=== PATIENT | male | born 1975 | race American Indian/Alaskan Native ===

== ENCOUNTER 2018-10-04 16:46 | Inpatient (IN) | payer OTHER ==
[2018-10-04] MEDS ORDERED: NACL 0.9% 1000 ML 1,000 ML IV ONE ×2 (17:00→21:11)
[2018-10-04 17:26] LABS: Basophils # (Auto) 0.1 K/mm3 (0.0-0.1); Basophils % (Auto) 0.5 % (0.0-1.8); Eosinophils # (Auto) 0.2 K/mm3 (0.0-0.4); Eosinophils % (Auto) 1.1 % (0.0-4.3); Hematocrit 37.9 % (35.5-45.6); Hemoglobin 12.5 gm/dl (11.8-15.2); Lymphocytes # (Auto) 3.2 K/mm3 (1.2-5.4); Lymphocytes % (Auto) 18.4 % (13.4-35.0); Mean Corpuscular HGB Conc 33 % (32-34); Mean Corpuscular Volume 98 fl (84-94); Monocytes % (Auto) 11.3 % (0.0-7.3); Platelet Count 302 K/mm3 (140-440); Red Blood Count 3.86 M/mm3 (3.65-5.03); Red Cell Distribution Width 15.9 % (13.2-15.2)
[2018-10-04 17:42] LABS: Alanine Aminotransferase 52 units/L (7-56); Albumin 3.7 g/dL (3.9-5); BUN/Creatinine Ratio 13; Blood Urea Nitrogen 15 mg/dL (9-20); Calcium 9.4 mg/dL (8.4-10.2); Hemolysis Index 13
[2018-10-04] MEDS ORDERED: ZOFRAN ONE (18:41)
[2018-10-04] MEDS ORDERED: MORPHINE ONE (18:41)
[2018-10-04] MEDS ORDERED: MORPHINE IV ONE ×2 (18:42→19:41)
[2018-10-04] MEDS ORDERED: ZOFRAN IV ONE (18:42)
[2018-10-04 18:45] LABS: Bilirubin,Urine NEG (Negative); Blood,Urine LG (Negative); Color,Urine Yellow (Yellow); Mucus,Urine FEW /HPF; Protein,Urine <15 mg/dL mg/dL (Negative); Urobilinogen,Urine < 2.0 mg/dL (<2.0)
--- NOTE | 2018-10-04 19:14 | Cat Scan Report ---
FINAL REPORT EXAM: CT ABDOMEN PELVIS WO CON HISTORY: abdominal pain, WBC elevated TECHNIQUE: Axial helical imaging through the abdomen and pelvis with sagittal and coronal reformatte d images obtained. Comparison: None FINDINGS: The lung bases are notable for evidence of pulmonary emphysema. The heart appears to be normal size. The liver, spleen, pancreas, kidneys and adrenal glands are unremarkable in appearance. The gallbladder is moderately distended and unremarkable. There is moderate inflammatory/phlegmonous change in the right anterior pelvis in the region the dist al appendix. The proximal appendix is normal caliber and contains air. The mid appendix appears to co ntain appendicoliths. The distal appendix is not clearly visualized but is in the region of the infla mmatory change in the right anterior pelvis. This may represent tip appendicitis. Evaluation is limit ed by the lack of GI and IV contrast. There is no evidence of pneumoperitoneum or free fluid. There is a moderate amount of stool throughout the colon. The abdominal aorta is normal caliber. The urinary bladder is mildly distended. There appears to be a mildly crease thickness of the urinary bladder wall. The prostate gland and seminal vesicles are unremarkable in appearance. The bony structures are unremarkable. IMPRESSION: 1. Moderate inflammatory/phlegmonous change in the region of the distal appendix. The distal appendix is not clearly visualized due to the inflammatory process and lack of GI and IV contrast. This may r epresent changes of tip appendicitis. If further imaging is required, CT with IV contrast and opacification of the distal small bowel and p roximal colon may be helpful. 2. Moderate amount of stool throughout the colon. 3. There appears to be mild increased thickness of the urinary bladder wall.
--- NOTE | 2018-10-04 20:05 | Emergency Department Report ---
ED General Adult HPI - General Chief complaint: Abdominal Pain Stated complaint: ABD PAIN Time Seen by Provider: 10/04/18 19:39 Source: patient Mode of arrival: Ambulatory Limitations: No Limitations - History of Present Illness Initial comments: She complains of right lower quadrant abdominal pain that started this morning. Patient states the pain is sharp in nature and does not radiate. Patient denies chest pain, shortness breath, or headache. -: Sudden Location: abdomen Radiation: non-radiation Severity scale (0 -10): 10 Quality: sharp Consistency: constant Improves with: none Worsens with: movement Associated Symptoms: denies other symptoms Treatments Prior to Arrival: none - Related Data Home Medications Medication Instructions Recorded Confirmed Last Taken Elviteg/Cob/Emtri/Tenof Alafen 1 each PO DAILY 10/04/18 10/04/18 Unknown [Genvoya Tablet] Allergies Allergy/AdvReac Type Severity Reaction Status Date / Time Iodine and Iodide Containing Allergy Anaphylaxis Verified 10/04/18 18:07 Produc shellfish derived Allergy Anaphylaxis Verified 10/04/18 18:07 ED Review of Systems ROS: Stated complaint: ABD PAIN Other details as noted in HPI Comment: All other systems reviewed and negative Constitutional: denies: chills, fever Eyes: denies: eye pain, eye discharge, vision change ENT: denies: ear pain, throat pain Respiratory: denies: cough, shortness of breath, wheezing Cardiovascular: denies: chest pain, palpitations Endocrine: no symptoms reported Gastrointestinal: abdominal pain. denies: nausea, diarrhea Genitourinary: denies: urgency, dysuria Musculoskeletal: denies: back pain, joint swelling, arthralgia Skin: denies: rash, lesions Neurological: denies: headache, weakness, paresthesias Psychiatric: denies: anxiety, depression Hematological/Lymphatic: denies: easy bleeding, easy bruising ED Past Medical Hx - Past Medical History Previous Medical History?: Yes Hx HIV: Yes - Surgical History Past Surgical History?: No - Social History Smoking Status: Current Every Day Smoker Substance Use Type: Marijuana - Medications Home Medications: Home Medications Medication Instructions Recorded Confirmed Last Taken Type Elviteg/Cob/Emtri/Tenof Alafen 1 each PO DAILY 10/04/18 10/04/18 Unknown History [Genvoya Tablet] ED Physical Exam - General Limitations: No Limitations General appearance: alert, in no apparent distress - Head Head exam: Present: atraumatic, normocephalic - Eye Eye exam: Present: normal appearance, PERRL, EOMI - ENT ENT exam: Present: mucous membranes moist - Neck Neck exam: Present: normal inspection - Respiratory Respiratory exam: Present: normal lung sounds bilaterally. Absent: respiratory distress, wheezes, rales - Cardiovascular Cardiovascular Exam: Present: regular rate, normal rhythm. Absent: systolic murmur, diastolic murmur, rubs, gallop - GI/Abdominal GI/Abdominal exam: Present: soft, tenderness (ttp rlq), normal bowel sounds. Absent: distended - Rectal Rectal exam: Present: deferred - Extremities Exam Extremities exam: Present: normal inspection - Back Exam Back exam: Present: normal inspection - Neurological Exam Neurological exam: Present: alert, oriented X3, CN II-XII intact. Absent: motor sensory deficit - Psychiatric Psychiatric exam: Present: normal affect, normal mood - Skin Skin exam: Present: warm, dry, intact, normal color. Absent: rash ED Course Vital Signs 10/04/18 16:58 Temperature 98.9 F Pulse Rate 107 H Respiratory 18 Rate Blood Pressure 130/74 O2 Sat by Pulse 99 Oximetry ED Medical Decision Making - Lab Data Result diagrams: 10/04/18 17:02 10/04/18 17:02 Lab Results 10/04/18 10/04/18 10/04/18 Range/Units 17:02 17:02 18:04 WBC 17.6 H (4.5-11.0) K/mm3 RBC 3.86 (3.65-5.03) M/mm3 Hgb 12.5 (11.8-15.2) gm/dl Hct 37.9 (35.5-45.6) % MCV 98 H (84-94) fl MCH 32 (28-32) pg MCHC 33 (32-34) % RDW 15.9 H (13.2-15.2) % Plt Count 302 (140-440) K/mm3 Lymph % (Auto) 18.4 (13.4-35.0) % [place] % (Auto) 11.3 H (0.0-7.3) % Eos % (Auto) 1.1 (0.0-4.3) % Baso % (Auto) 0.5 (0.0-1.8) % Lymph # 3.2 (1.2-5.4) K/mm3 [place] # 2.0 H (0.0-0.8) K/mm3 Eos # 0.2 (0.0-0.4) K/mm3 Baso # 0.1 (0.0-0.1) K/mm3 Seg Neutrophils % 68.7 (40.0-70.0) % Seg Neutrophils # 12.1 H (1.8-7.7) K/mm3 Sodium 133 L (137-145) mmol/L Potassium 4.2 (3.6-5.0) mmol/L Chloride 100.8 (98-107) mmol/L Carbon Dioxide 24 (22-30) mmol/L Anion Gap 12 mmol/L BUN 15 (9-20) mg/dL Creatinine 1.2 (0.8-1.5) mg/dL Estimated GFR > 60 ml/min BUN/Creatinine Ratio 13 % Glucose 97 (75-100) mg/dL Calcium 9.4 (8.4-10.2) mg/dL Total Bilirubin 0.50 (0.1-1.2) mg/dL AST 39 (5-40) units/L ALT 52 (7-56) units/L Alkaline Phosphatase 94 (35-129) units/L Total Protein 9.8 H (6.3-8.2) g/dL Albumin 3.7 L (3.9-5) g/dL Albumin/Globulin Ratio 0.6 % Urine Color Yellow (Yellow) Urine Turbidity Clear (Clear) Urine pH 5.0 (5.0-7.0) Ur Specific [place] 1.018 (1.003-1.030) Urine Protein <15 mg/dl (Negative) mg/dL Urine Glucose (UA) Neg (Negative) mg/dL Urine Ketones Neg (Negative) mg/dL Urine Blood Lg (Negative) Urine Nitrite Neg (Negative) Urine Bilirubin Neg (Negative) Urine Urobilinogen < 2.0 (<2.0) mg/dL Ur Leukocyte Esterase Neg (Negative) Urine WBC (Auto) 5.0 (0.0-6.0) /HPF Urine RBC (Auto) 127.0 (0.0-6.0) /HPF U Epithel Cells (Auto) < 1.0 (0-13.0) /HPF Urine Mucus Few /HPF - Radiology Data Radiology results: report reviewed [facility] [address] [place] [address] Cat Scan Report Signed Patient: MEJIA JUAREZ MR#: [id number] : 1975 Acct:[id number] Age/Sex: 42 / M ADM Date: 10/04/18 Loc: ED Attending Dr: Ordering Physician: CHAPARRITA BLANCO MD Date of Service: 10/04/18 Procedure(s): CT abdomen pelvis wo con Accession Number(s): [id number] cc: CHAPARRITA BLANCO MD FINAL REPORT EXAM: CT ABDOMEN PELVIS WO CON HISTORY: abdominal pain, WBC elevated TECHNIQUE: Axial helical imaging through the abdomen and pelvis with sagittal and coronal reformatted images obtained. Comparison: None FINDINGS: The lung bases are notable for evidence of pulmonary emphysema. The heart appears to be normal size. The liver, spleen, pancreas, kidneys and adrenal glands are unremarkable in appearance. The gallbladder is moderately distended and unremarkable. There is moderate inflammatory/phlegmonous change in the right anterior pelvis in the region the distal appendix. The proximal appendix is normal caliber and contains air. The mid appendix appears to contain appendicoliths. The distal appendix is not clearly visualized but is in the region of the inflammatory change in the right anterior pelvis. This may represent tip appendicitis. Evaluation is limited by the lack of GI and IV contrast. There is no evidence of pneu moperitoneum or free fluid. There is a moderate amount of stool throughout the colon. The abdominal aorta is normal caliber. The urinary bladder is mildly distended. There appears to be a mildly crease thickness of the urinary bladder wall. The prostate gland and seminal vesicles are unremarkable in appearance. The bony structures are unremarkable. IMPRESSION: 1. Moderate inflammatory/phlegmonous change in the region of the distal appendix. The distal appendix is not clearly visualized due to the inflammatory process and lack of GI and IV contrast. This may represent changes of tip appendicitis. If further imaging is required, CT with IV contrast and opacification of the distal small bowel and proximal colon may be helpful. 2. Moderate amount of stool throughout the colon. 3. There appears to be mild increased thickness of the urinary bladder wall. Transcribed By: ED Dictated By: THELMA FINE MD Electronically Authenticated By: THELMA FINE MD Signed Date/Time: 10/04/181913 DD/ 12 TD/TT: 10/04/181912 - Medical Decision Making Discussed results with patient Discussed patient with Drs. Friend and [place] Critical care attestation.: If time is entered above; I have spent that time in minutes in the direct care of this critically ill patient, excluding procedure time. ED Disposition Clinical Impression: Appendicitis Disposition: - OP ADMIT IP TO THIS HOSP Is pt being admited?: Yes Does the pt Need Aspirin: No Condition: Fair
[2018-10-04] MEDS ORDERED: ZOSYN/NS 4.5GM/100ML 4.5 GM/100 ML VIAL IV ONE (21:17)
[2018-10-04] MEDS ORDERED: SODIUM CHLORIDE FLUSH SYRINGE 10 ML IV PRN (21:54)
--- NOTE | 2018-10-04 21:58 | History and Physical Report ---
History of Present Illness Date of examination: 10/04/18 History of present illness: 42-year-old man with a history of HIV, with a "good CD4 count" [facility] with complaints of abdominal pain that started this morning. Pain is in the right lower quadrant which she described as a dull pain, constant, intensity 8/10, no radiation, [place] identify exacerbating factors, relieved with IV morphine. No nausea vomiting, fever or chills Review of systems Constitutional: no weight loss, chills, fever Ears, eyes, nose, mouth and throat: no nasal congestion, no nasal discharge, no sinus pressure, no vision change, no red eye. Neck: No neck pain or rigidity. Cardiovascular: no palpitations, chest pain Respiratory: no cough, shortness of breath Gastrointestinal: no hematochezia Genitourinary : no frequency , no hematuria Musculoskeletal: no joint swelling or muscle ache Integumentary: no rash, no pruritis Neurological: no parathesias, no focal weakness Endocrine: no cold or heat intolerance, no polyuria or polydipsia Hematologic/Lymphatic: no easy bruising, no easy bleeding, no gland swelling Allergic/Immunologic: no urticaria, no angioedema. PAST MEDICAL HISTORY:HIV PAST SURGICAL HISTORY: None SOCIAL HISTORY: Denies alcohol, +marijuana, +tobacco FAMILY HISTORY: Hypertension Medications and Allergies Allergies Allergy/AdvReac Type Severity Reaction Status Date / Time Iodine and Iodide Containing Allergy Anaphylaxis Verified 10/04/18 18:07 Produc shellfish derived Allergy Anaphylaxis Verified 10/04/18 18:07 Home Medications Medication Instructions Recorded Confirmed Last Taken Type Elviteg/Cob/Emtri/Tenof Alafen 1 each PO DAILY 10/04/18 10/04/18 Unknown History [Genvoya Tablet] Active Meds: Active Medications Acetaminophen (Tylenol) 650 mg PO Q4H PRN PRN Reason: Pain MILD(1-3)/Fever >100.5/LEWIS Sodium Chloride (Nacl 0.9% 1000 Ml) 1,000 mls @ 150 mls/hr IV ONCE ONE Stop: 10/05/18 03:50 Last Admin: 10/04/18 21:44 Dose: 150 mls/hr Documented by: Sodium Chloride (Nacl 0.9% 1000 Ml) 1,000 mls @ 125 mls/hr IV DIRECT CIRO Piperacillin Sod/Tazobactam Sod (Zosyn/Ns 4.5gm/100ml) 4.5 gm in 100 mls @ 200 mls/hr IV Q8HR CIRO; Protocol Morphine Sulfate (Morphine) 2 mg IV Q4H PRN PRN Reason: Pain, Moderate (4-6) Ondansetron HCl (Zofran) 4 mg IV Q4H PRN PRN Reason: Nausea And Vomiting Sodium Chloride (Sodium Chloride Flush Syringe 10 Ml) 10 ml IV BID CIRO Sodium Chloride (Sodium Chloride Flush Syringe 10 Ml) 10 ml IV PRN PRN PRN Reason: LINE FLUSH Exam - Physical Exam Narrative exam: General Apperance: The patient lying in bed, breathing comfortable HEENT: Normocephalic, atraumatic. Pupils equally round and reactive to light, EOMI, no sclericterus or JVD or thyromegaly or nodule. , no carotid bruit, mucous membranes moist, no exudate or erythema Heart: S1-S2, regular is rhythm Lungs: Clear to auscultation bilaterally, breathing comfortable Abdomen: Positive bowel sounds, soft, tender in right lower quadrant, nondistended, no organomegaly Extremities: No edema cyanosis clubbing Skin: no rash, nodule, warm and dry Neuro: cranial nerves 2-12 intact, speech is fluent, motor/sensory intact - Constitutional Vitals: Temp Pulse Resp BP Pulse Ox 98.2 F 107 H 18 127/85 98 10/04/18 21:00 10/04/18 16:58 10/04/18 16:58 10/04/18 21:45 10/04/18 21:45 Results - Labs CBC & Chem 7: 10/04/18 17:02 10/04/18 17:02 Labs: Abnormal lab results 10/04/18 10/04/18 Range/Units 17:02 17:02 WBC 17.6 H (4.5-11.0) K/mm3 MCV 98 H (84-94) fl RDW 15.9 H (13.2-15.2) % [place] % (Auto) 11.3 H (0.0-7.3) % [place] # 2.0 H (0.0-0.8) K/mm3 Seg Neutrophils # 12.1 H (1.8-7.7) K/mm3 Sodium 133 L (137-145) mmol/L Total Protein 9.8 H (6.3-8.2) g/dL Albumin 3.7 L (3.9-5) g/dL - Imaging and Cardiology CT scan - abdomen: report reviewed CT scan - pelvis: report reviewed Assessment and Plan Assessment Acute appendicitis HIV Plan Admit to medicine Start IV fluids, Zosyn, bowel rest Surgery was consulted to see the patient Start IV morphine, DVT prophylaxis
[2018-10-04] MEDS: SODIUM CHLORIDE FLUSH SYRINGE 10 ML IV SCH (22:30)
[2018-10-04] MEDS: MORPHINE IV PRN (23:16)
[2018-10-04] MEDS: ZOFRAN IV PRN (23:17)
[2018-10-05] MEDS: TYLENOL PO PRN ×3 (00:31→08:31)
[2018-10-05] MEDS: MORPHINE IV PRN ×4 (04:10→23:23)
[2018-10-05] MEDS: ZOFRAN IV PRN (04:10)
[2018-10-05] MEDS: NACL 0.9% 1000 ML 1,000 ML IV SCH (05:13)
[2018-10-05] MEDS: ZOSYN/NS 4.5GM/100ML 4.5 GM/100 ML VIAL IV SCH ×3 (05:51→23:20)
[2018-10-05 06:08] LABS: Hemoglobin 12.8 gm/dl (11.8-15.2); Mean Corpuscular HGB Conc 34 % (32-34); Mean Corpuscular Volume 97 fl (84-94); Platelet Count 255 K/mm3 (140-440); Red Blood Count 3.92 M/mm3 (3.65-5.03); Red Cell Distribution Width 15.8 % (13.2-15.2)
[2018-10-05 06:29] LABS: BUN/Creatinine Ratio 11; Blood Urea Nitrogen 13 mg/dL (9-20); Calcium 9.1 mg/dL (8.4-10.2); Hemolysis Index 13
--- NOTE | 2018-10-05 07:31 | Anesthesia Consultation ---
Anesthesia Consult and Med Hx Date of service: 10/05/18 - Airway Anesthetic Teeth Evaluation: Good, Chipped ROM Head & Neck: Adequate Mental/Hyoid Distance: Adequate Mallampati Class: Class II Intubation Access Assessment: Probably Good - Pulmonary Exam CTA: Yes - Cardiac Exam Cardiac Exam: RRR - Pre-Operative Health Status ASA Pre-Surgery Classification: ASA3 Proposed Anesthetic Plan: General - Pulmonary Hx Smoking: No Hx Asthma: No COPD: No Hx Pneumonia: No - Central Nervous System Hx Neuromuscular Disorder: No - Gastrointestinal Hx Gastroesophageal Reflux Disease: No - Endocrine Hx End Stage Renal Disease: No - Other Systems Hx Alcohol Use: No Hx Substance Use: Yes (THC) - Additional Comments Anesthesia Medical History Comments: HIV
--- NOTE | 2018-10-05 07:31 | Anesthesia Day of Surgery ---
Anesthesia Day of Surgery - Day of Surgery Patient Examined: Yes Patient H&P Reviewed: Yes Patient is NPO: Yes
[2018-10-05] MEDS ORDERED: VERSED IV NR (08:00)
--- NOTE | 2018-10-05 08:16 | Consultation ---
History of Present Illness Consult date: 10/05/18 Reason for consult: abdominal pain Requesting physician: AALIYAH NEUMANN Chief complaint: sudden onset of RLQ pain - History of present illness History of present illness: 42yo M with sudden onset of RLQ pain. No radiation. Never had this before. +F/C. no N/V. No diarrhea. had normal BM and flatus. Past History Past Medical History: HIV/AIDS Past Surgical History: No surgical history Social history: smoking. denies: alcohol abuse, IV drug use Family history: hypertension Medications and Allergies Allergies Allergy/AdvReac Type Severity Reaction Status Date / Time Iodine and Iodide Containing Allergy Anaphylaxis Verified 10/04/18 18:07 Produc shellfish derived Allergy Anaphylaxis Verified 10/04/18 18:07 Home Medications Medication Instructions Recorded Confirmed Last Taken Type Elviteg/Cob/Emtri/Tenof Alafen 1 each PO DAILY 10/04/18 10/04/18 Unknown History [Genvoya Tablet] Active Meds: Active Medications Acetaminophen (Tylenol) 650 mg PO Q4H PRN PRN Reason: Pain MILD(1-3)/Fever >100.5/LEWIS Last Admin: 10/05/18 04:10 Dose: 650 mg Documented by: Famotidine (Pepcid) 20 mg IV PREOP NR Fentanyl (Sublimaze) 50 mcg IV Q5MIN PRN PRN Reason: Pain , Severe (7-10) Hydromorphone HCl (Dilaudid) 0.5 mg IV Q10MIN PRN PRN Reason: Pain , Severe (7-10) Sodium Chloride (Nacl 0.9% 1000 Ml) 1,000 mls @ 125 mls/hr IV DIRECT CIRO Last Admin: 10/05/18 05:13 Dose: 125 mls/hr Documented by: Piperacillin Sod/Tazobactam Sod (Zosyn/Ns 4.5gm/100ml) 4.5 gm in 100 mls @ 200 mls/hr IV Q8HR CIRO; Protocol Last Admin: 10/05/18 05:51 Dose: 200 mls/hr Documented by: Midazolam HCl (Versed) 2 mg IV PREOP NR Stop: 10/05/18 23:59 Morphine Sulfate (Morphine) 2 mg IV Q4H PRN PRN Reason: Pain, Moderate (4-6) Last Admin: 10/05/18 04:10 Dose: 2 mg Documented by: Ondansetron HCl (Zofran) 4 mg IV Q4H PRN PRN Reason: Nausea And Vomiting Last Admin: 10/05/18 04:10 Dose: 4 mg Documented by: Sodium Chloride (Sodium Chloride Flush Syringe 10 Ml) 10 ml IV BID CIRO Last Admin: 10/04/18 22:30 Dose: 10 ml Documented by: Sodium Chloride (Sodium Chloride Flush Syringe 10 Ml) 10 ml IV PRN PRN PRN Reason: LINE FLUSH Review of Systems - Constitutional fever, chills, no chronic pain - Cardiovascular no chest pain, no shortness of breath - Respiratory no cough - Gastrointestinal abdominal pain, no nausea, no vomiting, no change in bowel habits - Genitourinary no dysuria - Muskuloskeletal no low back pain - Integumentary no rash, no pruritis, no redness, no sores, no wounds Exam Vital Signs Temp Pulse Resp BP Pulse Ox 98.9 F 107 H 18 130/74 99 10/04/18 16:58 10/04/18 16:58 10/04/18 16:58 10/04/18 16:58 10/04/18 16:58 - General physical appearance Positive: moderate pain, other (appears ill) - Eyes Positive: normal occular movement - Respiratory Positive: normal expansion, normal respiratory effort, clear to auscultation - Cardiovascular Rhythm: regular (tachy) - Abdomen Abdomen: Present: soft, tender (in RLQ), bowel sounds hypoactive, distended, rebound (in RLQ), guarding (in RLQ). Absent: rigid, wound, surgical scars - Integumentary no rash, no growths, no abnormal pigmentation - Neurologic Neurologic: alert and oriented to time, place and person, motor strength and sensation are grossly intact - Psychiatric Psychiatric: appropriate mood/affect, intact judgment & insight Results - Labs 10/05/18 05:44 10/05/18 05:44 Abnormal lab results 10/04/18 10/04/18 10/05/18 Range/Units 17:02 17:02 05:44 WBC 17.6 H 18.1 H (4.5-11.0) K/mm3 MCV 98 H 97 H (84-94) fl MCH 33 H (28-32) pg RDW 15.9 H 15.8 H (13.2-15.2) % [place] % (Auto) 11.3 H (0.0-7.3) % [place] # 2.0 H (0.0-0.8) K/mm3 Seg Neutrophils # 12.1 H (1.8-7.7) K/mm3 Sodium 133 L (137-145) mmol/L Chloride (98-107) mmol/L Glucose (75-100) mg/dL Total Protein 9.8 H (6.3-8.2) g/dL Albumin 3.7 L (3.9-5) g/dL 10/05/18 Range/Units 05:44 WBC (4.5-11.0) K/mm3 MCV (84-94) fl MCH (28-32) pg RDW (13.2-15.2) % [place] % (Auto) (0.0-7.3) % [place] # (0.0-0.8) K/mm3 Seg Neutrophils # (1.8-7.7) K/mm3 Sodium 131 L (137-145) mmol/L Chloride 96.6 L (98-107) mmol/L Glucose 108 H (75-100) mg/dL Total Protein (6.3-8.2) g/dL Albumin (3.9-5) g/dL Diabetes panel 10/04/18 10/05/18 Range/Units 17:02 05:44 Sodium 133 L 131 L (137-145) mmol/L Potassium 4.2 3.9 (3.6-5.0) mmol/L Chloride 100.8 96.6 L (98-107) mmol/L Carbon Dioxide 24 22 (22-30) mmol/L BUN 15 13 (9-20) mg/dL Creatinine 1.2 1.2 (0.8-1.5) mg/dL Glucose 97 108 H (75-100) mg/dL Calcium 9.4 9.1 (8.4-10.2) mg/dL AST 39 (5-40) units/L ALT 52 (7-56) units/L Alkaline Phosphatase 94 (35-129) units/L Total Protein 9.8 H (6.3-8.2) g/dL Albumin 3.7 L (3.9-5) g/dL Calcium panel 10/04/18 10/05/18 Range/Units 17:02 05:44 Calcium 9.4 9.1 (8.4-10.2) mg/dL Albumin 3.7 L (3.9-5) g/dL Pituitary panel 10/04/18 10/05/18 Range/Units 17:02 05:44 Sodium 133 L 131 L (137-145) mmol/L Potassium 4.2 3.9 (3.6-5.0) mmol/L Chloride 100.8 96.6 L (98-107) mmol/L Carbon Dioxide 24 22 (22-30) mmol/L BUN 15 13 (9-20) mg/dL Creatinine 1.2 1.2 (0.8-1.5) mg/dL Glucose 97 108 H (75-100) mg/dL Calcium 9.4 9.1 (8.4-10.2) mg/dL Adrenal panel 10/04/18 10/05/18 Range/Units 17:02 05:44 Sodium 133 L 131 L (137-145) mmol/L Potassium 4.2 3.9 (3.6-5.0) mmol/L Chloride 100.8 96.6 L (98-107) mmol/L Carbon Dioxide 24 22 (22-30) mmol/L BUN 15 13 (9-20) mg/dL Creatinine 1.2 1.2 (0.8-1.5) mg/dL Glucose 97 108 H (75-100) mg/dL Calcium 9.4 9.1 (8.4-10.2) mg/dL Total Bilirubin 0.50 (0.1-1.2) mg/dL AST 39 (5-40) units/L ALT 52 (7-56) units/L Alkaline Phosphatase 94 (35-129) units/L Total Protein 9.8 H (6.3-8.2) g/dL Albumin 3.7 L (3.9-5) g/dL - Imaging CT scan - abdomen: report reviewed, image reviewed CT scan - pelvis: report reviewed, image reviewed Assessment and Plan - Patient Problems (1) Appendicitis Current Visit: Yes Status: Acute Qualifiers: Acute appendicitis type: with localized peritonitis Appendicitis perforation presence: unspecified whether perforation present Plan to address problem: Pt appears ill. Need to proceed with surgery. Procedure, risks, benefits discussed for lap appy, possible open. Questions answered. Consent obtained. Will proceed to OR today when available. Will give extra fluid. time=30min
[2018-10-05] MEDS ORDERED: SUBLIMAZE IV PRN (09:00)
[2018-10-05] MEDS ORDERED: DILAUDID IV PRN (09:00)
[2018-10-05] MEDS ORDERED: PEPCID IV NR (09:00)
[2018-10-05] MEDS ORDERED: NACL 0.9% 1000 ML 1,000 ML IV ONE ×2 (09:00→16:00)
[2018-10-05 10:22] LABS: Eosinophils % (Manual) 0 % (0.0-4.3); Total Cells Counted 100
[2018-10-05 10:24] LABS: Anisocytosis 1+; Ovalocytes Rare; Platelet Estimate Consistent w Auto; Poikilocytosis 1+
[2018-10-05] MEDS: SODIUM CHLORIDE FLUSH SYRINGE 10 ML IV SCH ×2 (10:36→23:19)
[2018-10-05] MEDS ORDERED: XYLOCAINE 1% 20 mL ONE (12:11)
[2018-10-05] MEDS ORDERED: QUELICIN ONE (12:18)
[2018-10-05] MEDS ORDERED: DILAUDID ONE (12:18)
[2018-10-05] MEDS ORDERED: DIPRIVAN 10 MG/ML IV ONE (12:18)
[2018-10-05] MEDS ORDERED: XYLOCAINE MPF 2% ONE (12:18)
[2018-10-05] MEDS ORDERED: ZEMURON IV ONE (12:18)
[2018-10-05] MEDS ORDERED: PEPCID IV ONE (12:22)
[2018-10-05] MEDS ORDERED: VERSED ONE (12:22)
[2018-10-05] MEDS ORDERED: NEO SYNEPHRINE/NS Syringe(OR USE) IV ONE ×2 (13:04)
[2018-10-05] MEDS ORDERED: MARCAINE-EPI 0.25%-1:200,000 INFILTRATI ONE (13:15)
[2018-10-05] MEDS ORDERED: XYLOCAINE 1% 20 mL INFILTRATI ONE (13:16)
[2018-10-05] MEDS ORDERED: ROBINUL ONE (13:16)
[2018-10-05] MEDS ORDERED: BLOXIVERZ ONE (13:16)
[2018-10-05] MEDS ORDERED: ZOFRAN ONE (13:18)
[2018-10-05] MEDS ORDERED: NACL 0.9% IR ONE ×2 (13:18→13:25)
[2018-10-05] MEDS ORDERED: NACL 0.9% 1000 ML 1,000 ML ONE (13:21)
--- NOTE | 2018-10-05 13:29 | Post Operative Note ---
Date of procedure: 10/05/18 (Dictation:[id number]) Pre-op diagnosis: appendicitis Post-op diagnosis: same (acute suppurative appendicitis) Findings: enlarged appendix with surrounding suppurative changes. No perforation. Normal base. Procedure: lap appy Anesthesia: GETA Surgeon: WAYNE CRUZ Estimated blood loss: minimal Pathology: list (appendix) Specimen disposition: to lab Condition: stable Disposition: PACU
--- NOTE | 2018-10-05 15:38 | Progress Note ---
Assessment and Plan Assessment and plan: Patient is 42 man with a history of HIV who presented to [facility] ED with abdominal pains. He was found to have the following: * CT abd/pelvis wo contrast IMPRESSION: 1. Moderate inflammatory/phlegmonous change in the region of the distal appendix. The distal appendix is not clearly visualized due to the inflammatory process and lack of GI and IV contrast. This may represent changes of tip appendicitis. If further imaging is required, CT with IV contrast and opacification of the distal small bowel and proximal colon may be helpful. 2. Moderate amount of stool throughout the colon. 3. There appears to be mild increased thickness of the urinary bladder wall. Transcribed By: ED Dictated By: THELMA FINE MD Electronically Authenticated By: THELMA FINE MD Signed Date/Time: 10/04/181913 DD/ 12 TD/TT: 10/04/181912 Acute appendicitis: going for surgery SIRS with organ dysfunction, poa: treat with empiric abx, IVFs, treat the fever with tylenol suppository HIV: consult ID Hypotension: treat with IV resuscitation History Interval history: Patient was seen and examined. Follow-up on current diagnosis abd pains. Imaging, nursing note, chart, labs and old chart reviewed. Discussed with patient. Gen: thin, ill appearing, no respiratory distress, a/o x 3 HEENT: NCAT, EOMI, PERRL, OP Clear Neck: supple, no adenopathy, no thyromegaly, no JVD CVS/Heart: tachycardia, normal S1S2, pulses present bilaterally Chest/Lungs: CTA B, Symmetrical chest expansion, good air entry bilaterally GI/Abdomen: soft, distended, right sided tenderness, +bowel sounds, +guarding, rebound /Bladder: no suprapubic tenderness, no CVA or paraspinal tenderness Extermity/Skin: no c/c/e, no obvious rash MSK: FROM x 4 Neuro: CN 2-12 grossly intact, no new focal deficits Psych: calm Hospitalist Physical - Constitutional Vitals: Temp Pulse Resp BP Pulse Ox 101.5 F H 122 H 15 92/52 97 10/05/18 14:21 10/05/18 14:51 10/05/18 14:51 10/05/18 14:51 10/05/18 14:51 Results - Labs CBC & Chem 7: 10/05/18 05:44 10/05/18 05:44 Labs: Laboratory Last Values WBC 18.1 K/mm3 (4.5-11.0) H 10/05/18 05:44 RBC 3.92 M/mm3 (3.65-5.03) 10/05/18 05:44 Hgb 12.8 gm/dl (11.8-15.2) 10/05/18 05:44 Hct 38.0 % (35.5-45.6) 10/05/18 05:44 MCV 97 fl (84-94) H 10/05/18 05:44 MCH 33 pg (28-32) H 10/05/18 05:44 MCHC 34 % (32-34) 10/05/18 05:44 RDW 15.8 % (13.2-15.2) H 10/05/18 05:44 Plt Count 255 K/mm3 (140-440) 10/05/18 05:44 Lymph % (Auto) 18.4 % (13.4-35.0) 10/04/18 17:02 [place] % (Auto) 11.3 % (0.0-7.3) H 10/04/18 17:02 Eos % (Auto) 1.1 % (0.0-4.3) 10/04/18 17:02 Baso % (Auto) 0.5 % (0.0-1.8) 10/04/18 17:02 Lymph # 3.2 K/mm3 (1.2-5.4) 10/04/18 17:02 [place] # 2.0 K/mm3 (0.0-0.8) H 10/04/18 17:02 Eos # 0.2 K/mm3 (0.0-0.4) 10/04/18 17:02 Baso # 0.1 K/mm3 (0.0-0.1) 10/04/18 17:02 Add Manual Diff Complete 10/05/18 05:44 Total Counted 100 10/05/18 05:44 Seg Neutrophils % 68.7 % (40.0-70.0) 10/04/18 17:02 Seg Neuts % (Manual) 71.0 % (40.0-70.0) H 10/05/18 05:44 Band Neutrophils % 0 % 10/05/18 05:44 Lymphocytes % (Manual) 20.0 % (13.4-35.0) 10/05/18 05:44 Reactive Lymphs % (Man) 0 % 10/05/18 05:44 Monocytes % (Manual) 8.0 % (0.0-7.3) H 10/05/18 05:44 Eosinophils % (Manual) 0 % (0.0-4.3) 10/05/18 05:44 Basophils % (Manual) 1.0 % (0.0-1.8) 10/05/18 05:44 Metamyelocytes % 0 % 10/05/18 05:44 Myelocytes % 0 % 10/05/18 05:44 Promyelocytes % 0 % 10/05/18 05:44 Blast Cells % 0 % 10/05/18 05:44 Nucleated RBC % Not Reportable 10/05/18 05:44 Seg Neutrophils # 12.1 K/mm3 (1.8-7.7) H 10/04/18 17:02 Seg Neutrophils # Man 12.9 K/mm3 (1.8-7.7) H 10/05/18 05:44 Band Neutrophils # 0.0 K/mm3 10/05/18 05:44 Lymphocytes # (Manual) 3.6 K/mm3 (1.2-5.4) 10/05/18 05:44 Abs React Lymphs (Man) 0.0 K/mm3 10/05/18 05:44 Monocytes # (Manual) 1.4 K/mm3 (0.0-0.8) H 10/05/18 05:44 Eosinophils # (Manual) 0.0 K/mm3 (0.0-0.4) 10/05/18 05:44 Basophils # (Manual) 0.2 K/mm3 (0.0-0.1) H 10/05/18 05:44 Metamyelocytes # 0.0 K/mm3 10/05/18 05:44 Myelocytes # 0.0 K/mm3 10/05/18 05:44 Promyelocytes # 0.0 K/mm3 10/05/18 05:44 Blast Cells # 0.0 K/mm3 10/05/18 05:44 WBC Morphology Not Reportable 10/05/18 05:44 Hypersegmented Neuts Not Reportable 10/05/18 05:44 Hyposegmented Neuts Not Reportable 10/05/18 05:44 Hypogranular Neuts Not Reportable 10/05/18 05:44 Smudge Cells Not Reportable 10/05/18 05:44 Toxic Granulation Not Reportable 10/05/18 05:44 Toxic Vacuolation Not Reportable 10/05/18 05:44 Dohle Bodies Not Reportable 10/05/18 05:44 Pelger-Huet Anomaly Not Reportable 10/05/18 05:44 Melchor Rods Not Reportable 10/05/18 05:44 Platelet Estimate Consistent w auto 10/05/18 05:44 Clumped Platelets Not Reportable 10/05/18 05:44 Plt Clumps, EDTA Not Reportable 10/05/18 05:44 Large Platelets Not Reportable 10/05/18 05:44 Giant Platelets Not Reportable 10/05/18 05:44 Platelet Satelliting Not Reportable 10/05/18 05:44 Plt Morphology Comment Not Reportable 10/05/18 05:44 RBC Morphology Not Reportable 10/05/18 05:44 Dimorphic RBCs Not Reportable 10/05/18 05:44 Polychromasia Not Reportable 10/05/18 05:44 Hypochromasia Not Reportable 10/05/18 05:44 Poikilocytosis 1+ 10/05/18 05:44 Anisocytosis 1+ 10/05/18 05:44 Microcytosis Not Reportable 10/05/18 05:44 Macrocytosis Not Reportable 10/05/18 05:44 Spherocytes Not Reportable 10/05/18 05:44 Pappenheimer Bodies Not Reportable 10/05/18 05:44 Sickle Cells Not Reportable 10/05/18 05:44 Target Cells Not Reportable 10/05/18 05:44 Tear Drop Cells Not Reportable 10/05/18 05:44 Ovalocytes Rare 10/05/18 05:44 Helmet Cells Not Reportable 10/05/18 05:44 Agosto-Briggs Bodies Not Reportable 10/05/18 05:44 [place] Rings Not Reportable 10/05/18 05:44 [place] Cells Not Reportable 10/05/18 05:44 Bite Cells Not Reportable 10/05/18 05:44 Crenated Cell Not Reportable 10/05/18 05:44 Elliptocytes Not Reportable 10/05/18 05:44 Acanthocytes (Spur) Not Reportable 10/05/18 05:44 Rouleaux Not Reportable 10/05/18 05:44 Hemoglobin C Crystals Not Reportable 10/05/18 05:44 Schistocytes Not Reportable 10/05/18 05:44 Malaria parasites Not Reportable 10/05/18 05:44 Gustavo Bodies Not Reportable 10/05/18 05:44 Hem Pathologist Commnt No 10/05/18 05:44 Sodium 131 mmol/L (137-145) L 10/05/18 05:44 Potassium 3.9 mmol/L (3.6-5.0) 10/05/18 05:44 Chloride 96.6 mmol/L (98-107) L 10/05/18 05:44 Carbon Dioxide 22 mmol/L (22-30) 10/05/18 05:44 Anion Gap 16 mmol/L 10/05/18 05:44 BUN 13 mg/dL (9-20) 10/05/18 05:44 Creatinine 1.2 mg/dL (0.8-1.5) 10/05/18 05:44 Estimated GFR > 60 ml/min 10/05/18 05:44 BUN/Creatinine Ratio 11 % 10/05/18 05:44 Glucose 108 mg/dL (75-100) H 10/05/18 05:44 Calcium 9.1 mg/dL (8.4-10.2) 10/05/18 05:44 Total Bilirubin 0.50 mg/dL (0.1-1.2) 10/04/18 17:02 AST 39 units/L (5-40) 10/04/18 17:02 ALT 52 units/L (7-56) 10/04/18 17:02 Alkaline Phosphatase 94 units/L (35-129) 10/04/18 17:02 Total Protein 9.8 g/dL (6.3-8.2) H 10/04/18 17:02 Albumin 3.7 g/dL (3.9-5) L 10/04/18 17:02 Albumin/Globulin Ratio 0.6 % 10/04/18 17:02 Urine Color Yellow (Yellow) 10/04/18 18:04 Urine Turbidity Clear (Clear) 10/04/18 18:04 Urine pH 5.0 (5.0-7.0) 10/04/18 18:04 Ur Specific [place] 1.018 (1.003-1.030) 10/04/18 18:04 Urine Protein <15 mg/dl mg/dL (Negative) 10/04/18 18:04 Urine Glucose (UA) Neg mg/dL (Negative) 10/04/18 18:04 Urine Ketones Neg mg/dL (Negative) 10/04/18 18:04 Urine Blood Lg (Negative) 10/04/18 18:04 Urine Nitrite Neg (Negative) 10/04/18 18:04 Urine Bilirubin Neg (Negative) 10/04/18 18:04 Urine Urobilinogen < 2.0 mg/dL (<2.0) 10/04/18 18:04 Ur Leukocyte Esterase Neg (Negative) 10/04/18 18:04 Urine WBC (Auto) 5.0 /HPF (0.0-6.0) 10/04/18 18:04 Urine RBC (Auto) 127.0 /HPF (0.0-6.0) 10/04/18 18:04 U Epithel Cells (Auto) < 1.0 /HPF (0-13.0) 10/04/18 18:04 Urine Mucus Few /HPF 10/04/18 18:04
[2018-10-05] MEDS: TORADOL IV SCH ×3 (16:11→23:12)
--- NOTE | 2018-10-05 18:40 | Operative Report ---
PREOPERATIVE DIAGNOSIS: Acute appendicitis. POSTOPERATIVE DIAGNOSIS: Acute suppurative appendicitis. PROCEDURE: Laparoscopic appendectomy. ATTENDING PHYSICIAN: Haylie Friend MD ANESTHESIA: General. ESTIMATED BLOOD LOSS: Minimal. FLUIDS: 400 mL. FINDINGS: Enlarged inflamed appendix with suppurative changes in the periphery. No evidence of any obvious perforation. Base of appendix was normal. The adjacent cecum was normal. No other intra-abdominal abnormalities were noted. There was no purulent fluid in the surrounding area. SPECIMENS: Appendix. DRAINS: None. COMPLICATIONS: None. DISPOSITION: Stable, transferred to Recovery Room. INDICATIONS: This is a 42-year-old male who presented with acute onset of right lower quadrant pain. CT scan suggested appendicitis with inflammatory/phlegmonous changes in the right lower quadrant. The patient appeared ill and in need of urgent intervention. Procedure, risks and benefits were explained to the patient. Risks included but were not limited to infection, bleeding, pain, injury to surrounding structures, possible need for open surgery, possible need for partial colon resection, possible ostomy, etc. The patient understood and consented. OPERATIVE NOTE: The patient was brought to the operating room and placed on the table in supine position. After adequate general anesthesia was established, the patient was prepped and draped in usual sterile fashion. The patient had received antibiotics prior to the start of the case. Nasogastric tube and Velasquez catheter were in place. SCDs were in place. Time-out was called. I began by placing a Veress needle in the left upper quadrant. I had to adjust the Veress needle before the fluid freely went in and then we were able to insufflate the abdomen. Thereafter, I placed a 5 mm port at the umbilicus. A 12 mm port in the left lower quadrant and then another 5 mm port in the suprapubic area in the midline. All sites have been injected with 0.5% Marcaine with epinephrine and 1% lidocaine. The 5 mm port at the umbilicus was inserted using the Optiview technique, I entered safely. The rest were done under direct vision. We examined the left upper quadrant, the tip of the Veress needle had gone underneath the omentum. At the end of the case, I did move the omentum. The underlying colon was completely intact. There was no evidence of any injury, no bleeding, no suspicious fluid definitely no GI contents were noted. The entire area was clean. I did not feel as though we had any injury with placement of Veress needle. We turned our attention to the right lower quadrant. The appendix was in an anterior location. It was easily identified. There were suppurative changes as noted. I was able to dissect through the mesoappendix with the LigaSure device. Once the base was cleared off a laparoscopic stapler with a blue load was used to divide the base. The staple line was flushed with the cecum and hemostatic. The specimen was placed in the EndoCatch bag left on the side. We thoroughly evaluated the area. There was no bleeding. I did not find any pus present, but as a precaution, I thoroughly irrigated out the right lower quadrant and pelvic area. The fluid was coming back clear. The EndoCatch bag was removed from the 12 mm port site. That site was closed with a Catarino-Juju fascial closure device using an 0 Vicryl stitch. At this point is where we examined the left upper quadrant that had mentioned previously. There was no evidence of any injury. We put the patient from a Trendelenburg to reverse Trendelenburg position. We suctioned out any remaining fluid. The fluid was coming back clear. Ports were removed. The abdomen was desufflated. Additional local was injected into all the port sites. Skin sites were closed with 4-0 Monocryl subcuticular stitches. Skin was cleaned and dried. Dermabond was placed. The patient tolerated the procedure well. There were no complications. All counts were correct at the end of the case. There was no family for me to speak to in the waiting area. JOB# [id number] LAUREN/MAYTE
[2018-10-06] MEDS: NACL 0.9% 1000 ML 1,000 ML IV SCH ×2 (01:06→10:05)
[2018-10-06] MEDS: TORADOL IV SCH ×5 (05:24→23:10)
[2018-10-06] MEDS: ZOSYN/NS 4.5GM/100ML 4.5 GM/100 ML VIAL IV SCH (05:24)
[2018-10-06] MEDS: MORPHINE IV PRN (05:33)
--- NOTE | 2018-10-06 08:34 | Progress Note ---
Subjective Date of service: 10/06/18 Interval history: Patient is awake and alert. He has no anesthetic related complaints. Objective - Constitutional Vitals: Vital Signs - 12hr 10/05/18 10/05/18 10/05/18 20:41 20:51 21:00 Temperature Pulse Rate 101 H 98 H 95 H Pulse Rate [ From Monitor] Respiratory 13 14 13 Rate Blood Pressure 109/75 109/75 128/90 O2 Sat by Pulse 97 99 99 Oximetry 10/05/18 10/05/18 10/05/18 21:11 21:21 21:31 Temperature Pulse Rate 113 H 99 H 99 H Pulse Rate [ From Monitor] Respiratory 18 13 14 Rate Blood Pressure 128/90 109/75 109/75 O2 Sat by Pulse 96 97 96 Oximetry 10/05/18 10/05/18 10/05/18 21:41 21:51 22:00 Temperature Pulse Rate 105 H 107 H 110 H Pulse Rate [ From Monitor] Respiratory 13 15 15 Rate Blood Pressure 109/75 128/90 140/97 O2 Sat by Pulse 95 98 Oximetry 10/05/18 10/05/18 10/05/18 22:11 22:21 22:31 Temperature Pulse Rate 108 H 112 H 119 H Pulse Rate [ From Monitor] Respiratory 15 19 18 Rate Blood Pressure 140/97 140/97 140/97 O2 Sat by Pulse 94 92 96 Oximetry 10/05/18 10/05/18 10/05/18 22:41 22:45 22:51 Temperature Pulse Rate 117 H 114 H Pulse Rate [ 100 H From Monitor] Respiratory 22 17 17 Rate Blood Pressure 140/97 140/97 O2 Sat by Pulse 97 98 97 Oximetry 10/05/18 10/05/18 10/05/18 23:00 23:11 23:12 Temperature Pulse Rate 111 H 113 H Pulse Rate [ From Monitor] Respiratory 14 21 13 Rate Blood Pressure 125/93 125/93 O2 Sat by Pulse 98 97 Oximetry 10/05/18 10/05/18 10/05/18 23:21 23:23 23:31 Temperature Pulse Rate 107 H 120 H Pulse Rate [ From Monitor] Respiratory 17 18 15 Rate Blood Pressure 125/93 125/93 O2 Sat by Pulse 97 97 Oximetry 10/05/18 10/05/18 10/05/18 23:41 23:42 23:51 Temperature Pulse Rate 119 H 114 H Pulse Rate [ From Monitor] Respiratory 17 14 15 Rate Blood Pressure 125/93 125/93 O2 Sat by Pulse 98 98 Oximetry 10/05/18 10/06/18 10/06/18 23:53 00:00 00:11 Temperature 99.7 F H Pulse Rate 114 H 119 H Pulse Rate [ From Monitor] Respiratory 14 15 15 Rate Blood Pressure 109/68 109/68 O2 Sat by Pulse 93 97 Oximetry 10/06/18 10/06/18 10/06/18 00:15 00:21 00:31 Temperature Pulse Rate 115 H 115 H Pulse Rate [ 100 H From Monitor] Respiratory 17 15 14 Rate Blood Pressure 109/68 109/68 O2 Sat by Pulse 98 97 96 Oximetry 10/06/18 10/06/18 10/06/18 00:41 00:51 01:00 Temperature Pulse Rate 111 H 109 H 107 H Pulse Rate [ From Monitor] Respiratory 15 14 14 Rate Blood Pressure 109/68 109/68 94/54 O2 Sat by Pulse 97 96 95 Oximetry 10/06/18 10/06/18 10/06/18 01:11 01:21 01:31 Temperature Pulse Rate 103 H 99 H 105 H Pulse Rate [ From Monitor] Respiratory 14 13 13 Rate Blood Pressure 94/54 94/54 94/54 O2 Sat by Pulse 97 97 97 Oximetry 10/06/18 10/06/18 10/06/18 01:41 01:51 02:00 Temperature Pulse Rate 104 H 102 H 101 H Pulse Rate [ From Monitor] Respiratory 14 14 13 Rate Blood Pressure 94/54 94/54 103/70 O2 Sat by Pulse 97 96 98 Oximetry 10/06/18 10/06/18 10/06/18 02:11 02:21 02:31 Temperature Pulse Rate 97 H 103 H 100 H Pulse Rate [ From Monitor] Respiratory 13 14 14 Rate Blood Pressure 103/70 103/70 103/70 O2 Sat by Pulse 97 98 98 Oximetry 10/06/18 10/06/18 10/06/18 02:41 02:51 03:00 Temperature Pulse Rate 101 H 96 H 96 H Pulse Rate [ From Monitor] Respiratory 20 14 15 Rate Blood Pressure 103/70 103/70 106/70 O2 Sat by Pulse 98 96 99 Oximetry 10/06/18 10/06/18 10/06/18 03:11 03:20 03:31 Temperature Pulse Rate 100 H 101 H 102 H Pulse Rate [ From Monitor] Respiratory 15 14 14 Rate Blood Pressure 106/70 106/70 106/70 O2 Sat by Pulse 96 97 98 Oximetry 10/06/18 10/06/18 10/06/18 03:41 03:51 04:00 Temperature 100.0 F H Pulse Rate 97 H 95 H 96 H Pulse Rate [ 100 H From Monitor] Respiratory 14 15 15 Rate Blood Pressure 106/70 106/70 116/78 O2 Sat by Pulse 97 98 98 Oximetry 10/06/18 10/06/18 10/06/18 04:11 04:21 04:31 Temperature Pulse Rate 93 H 89 95 H Pulse Rate [ From Monitor] Respiratory 14 14 14 Rate Blood Pressure 106/70 106/70 106/70 O2 Sat by Pulse 97 93 94 Oximetry 10/06/18 10/06/18 10/06/18 04:41 04:51 05:24 Temperature Pulse Rate 97 H 97 H Pulse Rate [ From Monitor] Respiratory 15 15 18 Rate Blood Pressure 106/70 106/70 O2 Sat by Pulse 92 93 Oximetry 10/06/18 10/06/18 10/06/18 05:33 05:54 06:03 Temperature Pulse Rate Pulse Rate [ From Monitor] Respiratory 16 13 13 Rate Blood Pressure O2 Sat by Pulse Oximetry - Labs CBC & Chem 7: 10/05/18 05:44 10/05/18 05:44 Labs: Abnormal lab results 10/05/18 Range/Units 05:44 Seg Neuts % (Manual) 71.0 H (40.0-70.0) % Monocytes % (Manual) 8.0 H (0.0-7.3) % Seg Neutrophils # Man 12.9 H (1.8-7.7) K/mm3 Monocytes # (Manual) 1.4 H (0.0-0.8) K/mm3 Basophils # (Manual) 0.2 H (0.0-0.1) K/mm3
[2018-10-06] MEDS: SODIUM CHLORIDE FLUSH SYRINGE 10 ML IV SCH ×2 (10:05→23:11)
--- NOTE | 2018-10-06 12:40 | Progress Note ---
Assessment and Plan Assessment and plan: Patient is 42 man with a history of HIV who presented to [facility] ED with abdominal pains. He was found to have the following: * CT abd/pelvis wo contrast IMPRESSION: 1. Moderate inflammatory/phlegmonous change in the region of the distal appendix. The distal appendix is not clearly visualized due to the inflammatory process and lack of GI and IV contrast. This may represent changes of tip appendicitis. If further imaging is required, CT with IV contrast and opacification of the distal small bowel and proximal colon may be helpful. 2. Moderate amount of stool throughout the colon. 3. There appears to be mild increased thickness of the urinary bladder wall. Transcribed By: ED Dictated By: THELMA FINE MD Electronically Authenticated By: THELMA FINE MD Signed Date/Time: 10/04/181913 DD/ 12 TD/TT: 10/04/181912 Acute appendicitis s/p surgery on 10/05/18 SIRS with organ dysfunction, poa: treat with empiric abx, IVFs, treat the fever with tylenol suppository HIV: consulted ID Hypotension in IMCU: treated with IV resuscitation and bp responded to IVF History Interval history: Patient was seen and examined. Follow-up on current diagnosis Appendicitis. Imaging, nursing note, chart, labs and old chart reviewed. Discussed with patient. Hospitalist Physical - Physical exam Narrative exam: Gen: thin, ill appearing, no respiratory distress, a/o x 3 HEENT: NCAT, EOMI, PERRL, OP Clear Neck: supple, no adenopathy, no thyromegaly, no JVD CVS/Heart: tachycardia, normal S1S2, pulses present bilaterally Chest/Lungs: CTA B, Symmetrical chest expansion, good air entry bilaterally GI/Abdomen: soft, distended, right sided tenderness, +bowel sounds, +guarding, rebound /Bladder: no suprapubic tenderness, no CVA or paraspinal tenderness Extermity/Skin: no c/c/e, no obvious rash MSK: FROM x 4 Neuro: CN 2-12 grossly intact, no new focal deficits Psych: calm - Constitutional Vitals: Temp Pulse Resp BP Pulse Ox 100.0 F H 98 H 13 106/70 98 10/06/18 04:00 10/06/18 08:00 10/06/18 08:00 10/06/18 04:51 10/06/18 10:00 Results - Labs CBC & Chem 7: 10/05/18 05:44 10/05/18 05:44 Labs: Laboratory Last Values WBC 18.1 K/mm3 (4.5-11.0) H 10/05/18 05:44 RBC 3.92 M/mm3 (3.65-5.03) 10/05/18 05:44 Hgb 12.8 gm/dl (11.8-15.2) 10/05/18 05:44 Hct 38.0 % (35.5-45.6) 10/05/18 05:44 MCV 97 fl (84-94) H 10/05/18 05:44 MCH 33 pg (28-32) H 10/05/18 05:44 MCHC 34 % (32-34) 10/05/18 05:44 RDW 15.8 % (13.2-15.2) H 10/05/18 05:44 Plt Count 255 K/mm3 (140-440) 10/05/18 05:44 Lymph % (Auto) 18.4 % (13.4-35.0) 10/04/18 17:02 [place] % (Auto) 11.3 % (0.0-7.3) H 10/04/18 17:02 Eos % (Auto) 1.1 % (0.0-4.3) 10/04/18 17:02 Baso % (Auto) 0.5 % (0.0-1.8) 10/04/18 17:02 Lymph # 3.2 K/mm3 (1.2-5.4) 10/04/18 17:02 [place] # 2.0 K/mm3 (0.0-0.8) H 10/04/18 17:02 Eos # 0.2 K/mm3 (0.0-0.4) 10/04/18 17:02 Baso # 0.1 K/mm3 (0.0-0.1) 10/04/18 17:02 Add Manual Diff Complete 10/05/18 05:44 Total Counted 100 10/05/18 05:44 Seg Neutrophils % 68.7 % (40.0-70.0) 10/04/18 17:02 Seg Neuts % (Manual) 71.0 % (40.0-70.0) H 10/05/18 05:44 Band Neutrophils % 0 % 10/05/18 05:44 Lymphocytes % (Manual) 20.0 % (13.4-35.0) 10/05/18 05:44 Reactive Lymphs % (Man) 0 % 10/05/18 05:44 Monocytes % (Manual) 8.0 % (0.0-7.3) H 10/05/18 05:44 Eosinophils % (Manual) 0 % (0.0-4.3) 10/05/18 05:44 Basophils % (Manual) 1.0 % (0.0-1.8) 10/05/18 05:44 Metamyelocytes % 0 % 10/05/18 05:44 Myelocytes % 0 % 10/05/18 05:44 Promyelocytes % 0 % 10/05/18 05:44 Blast Cells % 0 % 10/05/18 05:44 Nucleated RBC % Not Reportable 10/05/18 05:44 Seg Neutrophils # 12.1 K/mm3 (1.8-7.7) H 10/04/18 17:02 Seg Neutrophils # Man 12.9 K/mm3 (1.8-7.7) H 10/05/18 05:44 Band Neutrophils # 0.0 K/mm3 10/05/18 05:44 Lymphocytes # (Manual) 3.6 K/mm3 (1.2-5.4) 10/05/18 05:44 Abs React Lymphs (Man) 0.0 K/mm3 10/05/18 05:44 Monocytes # (Manual) 1.4 K/mm3 (0.0-0.8) H 10/05/18 05:44 Eosinophils # (Manual) 0.0 K/mm3 (0.0-0.4) 10/05/18 05:44 Basophils # (Manual) 0.2 K/mm3 (0.0-0.1) H 10/05/18 05:44 Metamyelocytes # 0.0 K/mm3 10/05/18 05:44 Myelocytes # 0.0 K/mm3 10/05/18 05:44 Promyelocytes # 0.0 K/mm3 10/05/18 05:44 Blast Cells # 0.0 K/mm3 10/05/18 05:44 WBC Morphology Not Reportable 10/05/18 05:44 Hypersegmented Neuts Not Reportable 10/05/18 05:44 Hyposegmented Neuts Not Reportable 10/05/18 05:44 Hypogranular Neuts Not Reportable 10/05/18 05:44 Smudge Cells Not Reportable 10/05/18 05:44 Toxic Granulation Not Reportable 10/05/18 05:44 Toxic Vacuolation Not Reportable 10/05/18 05:44 Dohle Bodies Not Reportable 10/05/18 05:44 Pelger-Huet Anomaly Not Reportable 10/05/18 05:44 Melchor Rods Not Reportable 10/05/18 05:44 Platelet Estimate Consistent w auto 10/05/18 05:44 Clumped Platelets Not Reportable 10/05/18 05:44 Plt Clumps, EDTA Not Reportable 10/05/18 05:44 Large Platelets Not Reportable 10/05/18 05:44 Giant Platelets Not Reportable 10/05/18 05:44 Platelet Satelliting Not Reportable 10/05/18 05:44 Plt Morphology Comment Not Reportable 10/05/18 05:44 RBC Morphology Not Reportable 10/05/18 05:44 Dimorphic RBCs Not Reportable 10/05/18 05:44 Polychromasia Not Reportable 10/05/18 05:44 Hypochromasia Not Reportable 10/05/18 05:44 Poikilocytosis 1+ 10/05/18 05:44 Anisocytosis 1+ 10/05/18 05:44 Microcytosis Not Reportable 10/05/18 05:44 Macrocytosis Not Reportable 10/05/18 05:44 Spherocytes Not Reportable 10/05/18 05:44 Pappenheimer Bodies Not Reportable 10/05/18 05:44 Sickle Cells Not Reportable 10/05/18 05:44 Target Cells Not Reportable 10/05/18 05:44 Tear Drop Cells Not Reportable 10/05/18 05:44 Ovalocytes Rare 10/05/18 05:44 Helmet Cells Not Reportable 10/05/18 05:[address] Bodies Not Reportable 10/05/18 05:44 [place] Rings Not Reportable 10/05/18 05:44 [place] Cells Not Reportable 10/05/18 05:44 Bite Cells Not Reportable 10/05/18 05:44 Crenated Cell Not Reportable 10/05/18 05:44 Elliptocytes Not Reportable 10/05/18 05:44 Acanthocytes (Spur) Not Reportable 10/05/18 05:44 Rouleaux Not Reportable 10/05/18 05:44 Hemoglobin C Crystals Not Reportable 10/05/18 05:44 Schistocytes Not Reportable 10/05/18 05:44 Malaria parasites Not Reportable 10/05/18 05:44 Gustavo Bodies Not Reportable 10/05/18 05:44 Hem Pathologist Commnt No 10/05/18 05:44 Sodium 131 mmol/L (137-145) L 10/05/18 05:44 Potassium 3.9 mmol/L (3.6-5.0) 10/05/18 05:44 Chloride 96.6 mmol/L (98-107) L 10/05/18 05:44 Carbon Dioxide 22 mmol/L (22-30) 10/05/18 05:44 Anion Gap 16 mmol/L 10/05/18 05:44 BUN 13 mg/dL (9-20) 10/05/18 05:44 Creatinine 1.2 mg/dL (0.8-1.5) 10/05/18 05:44 Estimated GFR > 60 ml/min 10/05/18 05:44 BUN/Creatinine Ratio 11 % 10/05/18 05:44 Glucose 108 mg/dL (75-100) H 10/05/18 05:44 Calcium 9.1 mg/dL (8.4-10.2) 10/05/18 05:44 Total Bilirubin 0.50 mg/dL (0.1-1.2) 10/04/18 17:02 AST 39 units/L (5-40) 10/04/18 17:02 ALT 52 units/L (7-56) 10/04/18 17:02 Alkaline Phosphatase 94 units/L (35-129) 10/04/18 17:02 Total Protein 9.8 g/dL (6.3-8.2) H 10/04/18 17:02 Albumin 3.7 g/dL (3.9-5) L 10/04/18 17:02 Albumin/Globulin Ratio 0.6 % 10/04/18 17:02 Urine Color Yellow (Yellow) 10/04/18 18:04 Urine Turbidity Clear (Clear) 10/04/18 18:04 Urine pH 5.0 (5.0-7.0) 10/04/18 18:04 Ur Specific [place] 1.018 (1.003-1.030) 10/04/18 18:04 Urine Protein <15 mg/dl mg/dL (Negative) 10/04/18 18:04 Urine Glucose (UA) Neg mg/dL (Negative) 10/04/18 18:04 Urine Ketones Neg mg/dL (Negative) 10/04/18 18:04 Urine Blood Lg (Negative) 10/04/18 18:04 Urine Nitrite Neg (Negative) 10/04/18 18:04 Urine Bilirubin Neg (Negative) 10/04/18 18:04 Urine Urobilinogen < 2.0 mg/dL (<2.0) 10/04/18 18:04 Ur Leukocyte Esterase Neg (Negative) 10/04/18 18:04 Urine WBC (Auto) 5.0 /HPF (0.0-6.0) 10/04/18 18:04 Urine RBC (Auto) 127.0 /HPF (0.0-6.0) 10/04/18 18:04 U Epithel Cells (Auto) < 1.0 /HPF (0-13.0) 10/04/18 18:04 Urine Mucus Few /HPF 10/04/18 18:04
--- NOTE | 2018-10-06 13:05 | Progress Note ---
Assessment and Plan 42 yo M s/p laparoscopic appendectomy, POD 1 1. adv to soft diet 2. c/w IVF 3. repeat labs in am 4. OOB/ambulate 5. IS/pulm toilet 6. ice to incision, prn PO pain control 7. no need for further antibiotics from surgery standpoint 8. ok to downgrade to surgical floor Anticipate discharge tomorrow. D/W Dr. Cantu Thank you, please call with questions. Subjective Date of service: 10/06/18 Narrative: Pt seen and examined. c/o incisional pain. Has been tolerating a clear liquid diet and is hungry. He has not been OOB yet. He is urinating on his own. Tm 100 Objective Vital Signs - 12hr 10/06/18 10/06/18 10/06/18 01:11 01:21 01:31 Temperature Pulse Rate 103 H 99 H 105 H Pulse Rate [ From Monitor] Respiratory 14 13 13 Rate Blood Pressure 94/54 94/54 94/54 O2 Sat by Pulse 97 97 97 Oximetry 10/06/18 10/06/18 10/06/18 01:41 01:51 02:00 Temperature Pulse Rate 104 H 102 H 101 H Pulse Rate [ From Monitor] Respiratory 14 14 13 Rate Blood Pressure 94/54 94/54 103/70 O2 Sat by Pulse 97 96 98 Oximetry 10/06/18 10/06/18 10/06/18 02:11 02:21 02:31 Temperature Pulse Rate 97 H 103 H 100 H Pulse Rate [ From Monitor] Respiratory 13 14 14 Rate Blood Pressure 103/70 103/70 103/70 O2 Sat by Pulse 97 98 98 Oximetry 10/06/18 10/06/18 10/06/18 02:41 02:51 03:00 Temperature Pulse Rate 101 H 96 H 96 H Pulse Rate [ From Monitor] Respiratory 20 14 15 Rate Blood Pressure 103/70 103/70 106/70 O2 Sat by Pulse 98 96 99 Oximetry 10/06/18 10/06/18 10/06/18 03:11 03:20 03:31 Temperature Pulse Rate 100 H 101 H 102 H Pulse Rate [ From Monitor] Respiratory 15 14 14 Rate Blood Pressure 106/70 106/70 106/70 O2 Sat by Pulse 96 97 98 Oximetry 10/06/18 10/06/18 10/06/18 03:41 03:51 04:00 Temperature 100.0 F H Pulse Rate 97 H 95 H 96 H Pulse Rate [ 100 H From Monitor] Respiratory 14 15 15 Rate Blood Pressure 106/70 106/70 116/78 O2 Sat by Pulse 97 98 98 Oximetry 10/06/18 10/06/18 10/06/18 04:11 04:21 04:31 Temperature Pulse Rate 93 H 89 95 H Pulse Rate [ From Monitor] Respiratory 14 14 14 Rate Blood Pressure 106/70 106/70 106/70 O2 Sat by Pulse 97 93 94 Oximetry 10/06/18 10/06/18 10/06/18 04:41 04:51 05:24 Temperature Pulse Rate 97 H 97 H Pulse Rate [ From Monitor] Respiratory 15 15 18 Rate Blood Pressure 106/70 106/70 O2 Sat by Pulse 92 93 Oximetry 10/06/18 10/06/18 10/06/18 05:33 05:54 06:03 Temperature Pulse Rate Pulse Rate [ From Monitor] Respiratory 16 13 13 Rate Blood Pressure O2 Sat by Pulse Oximetry 10/06/18 10/06/18 08:00 10:00 Temperature Pulse Rate Pulse Rate [ 98 H From Monitor] Respiratory 13 Rate Blood Pressure O2 Sat by Pulse 98 98 Oximetry - General physical appearance Narrative Exam: Gen; AAOx3. NAD CV: S1, S2+ resp: even and unlabored Abd: soft, mildly distended, periincisional TTP. incisions c/d/i Ext: no c/c/e - Labs 10/05/18 05:44 10/05/18 05:44
--- NOTE | 2018-10-06 13:15 | Event Note ---
Date: 10/06/[address] Cantu, 42 y/o male with HIV infection and appendicitis s/p lap appendectomy. Ok to restart home ART today once he starts eating. Full consultation to f/u tomorrow. Discussed with Dr Cantu.
[2018-10-06] MEDS ORDERED: ZOSYN/NS 4.5GM/100ML 4.5 GM/100 ML VIAL IV SCH (14:00)
[2018-10-06] MEDS: NORCO 5/325 PO PRN ×2 (18:35→23:13)
[2018-10-07] MEDS: TORADOL IV SCH (06:45)
--- NOTE | 2018-10-07 09:48 | Consultation ---
History of Present Illness - Reason for Consult Consult date: 10/07/18 Sepsis, HIV, s/p Appendectomy Requesting physician: RAFFI JOINER - History of Present Illness This patient is a 42-year-old man with a past medical history of HIV, states [facility] ED staff that he has a "good CD4 count", presents to the ED on 10/04/18 with complaints of right lower quadrant pain that began that morning. Patient described the pain as a dull pain, contant and intensity 8/10 with out radiation. . On admission WBC 17.6, Creatinine 1.2, AST 39, ALT 52, AP 94, Temperature 101.6, HR 107, BP 130/74. U/A is not consistent with a UTI. Blood cultures wer drawn and checo no growth thus far. CT of abdomen and pelvis showed moderate inflammatory/phelgmonus change in the region of the distal appendix. On 10/05/18 s/p laparoscopic appendectomy by . Patient states that he was diagnosed with HIV in 2005. his ART therapy Rere is currently being managed by Dr. Blane Mendoza at [facility] in [place].. He has been going to that clinic since 2018. At his last appointment August 2018, his CD4 756 and VL 92. He currently smokes tobacco and marijuana but denies alcohol or any other substance abuse. Review of Systems: General: + fever, no chills, nightsweats, unintentional weight change, or change in appetite Cutaneous: no rash, pruritus Head: no headaches or injury Eyes: no changes in vision, eye pain, double vision Ears: no ear pain, ear discharge, ringing or hearing loss Nose: no nose bleeding, stuffiness Mouth & throat: no bleeding gums, no horseness, no dental problems, or swollen glands Neck: no pain, node enlargement/lumps, tyroid enlargement or tenderness Respiratory: no cough, wheezing, sputum, hemoptysis, pleuritic chest pain Cardiovascular: no chest pain, leg edema, cyanosis, VIVAR, orthopnea Musculoskeletal: no decreased joint motion, bone or joint pain, joint swelling, muscle aches Gastrointestinal: no nausea, vomiting, hematemesis, diarrhea, constipation Genitourinary no frequent urination, no dysuria, hematuria, incontinence Neurogical: no seizures, no headaches, no weakness, no paresthesias, Psychiatric: stable mood; no excessive anxiety, sadness or moodiness Past History Past Medical History: HIV/AIDS Past Surgical History: No surgical history Social history: smoking. denies: alcohol abuse, IV drug use Family history: hypertension Medications and Allergies Allergies Allergy/AdvReac Type Severity Reaction Status Date / Time Iodine and Iodide Containing Allergy Anaphylaxis Verified 10/04/18 18:07 Produc shellfish derived Allergy Anaphylaxis Verified 10/04/18 18:07 Home Medications Medication Instructions Recorded Confirmed Last Taken Type Elviteg/Cob/Emtri/Tenof Alafen 1 each PO DAILY 10/04/18 10/05/18 10/04/18 08:00 History [Genvoya Tablet] Bisacodyl [Dulcolax suppos] 10 mg WA QDAY PRN #4 supp.rect 10/07/18 Unknown Rx HYDROcodone/APAP 5-325 [[place] 1 each PO Q6H PRN #20 tablet 10/07/18 Unknown Rx 5-325 mg TAB] Active Meds: Active Medications Acetaminophen (Tylenol) 650 mg PO Q4H PRN PRN Reason: Pain MILD(1-3)/Fever >100.5/LEWIS Last Admin: 10/05/18 08:31 Dose: 650 mg Documented by: Acetaminophen/Hydrocodone Bitart ([place] 5/325) 2 each PO Q6H PRN PRN Reason: Pain, Moderate (4-6) Last Admin: 10/06/18 23:13 Dose: 2 each Documented by: Sodium Chloride (Nacl 0.9% 1000 Ml) 1,000 mls @ 150 mls/hr IV DIRECT CIRO Last Admin: 10/06/18 10:05 Dose: 125 mls/hr Documented by: Ketorolac Tromethamine (Toradol) 30 mg IV Q6HR CIRO Stop: 10/10/18 13:59 Last Admin: 10/07/18 06:45 Dose: 30 mg Documented by: Miscellaneous Medication (Elviteg/Cob/Emtri/Tenof Alafen [Genvoya Tablet]) 1 ea ch PO DAILY [facility] Morphine Sulfate (Morphine) 2 mg IV Q4H PRN PRN Reason: Pain, Moderate (4-6) Last Admin: 10/06/18 05:33 Dose: 2 mg Documented by: Ondansetron HCl (Zofran) 4 mg IV Q4H PRN PRN Reason: Nausea And Vomiting Last Admin: 10/05/18 04:10 Dose: 4 mg Documented by: Sodium Chloride (Sodium Chloride Flush Syringe 10 Ml) 10 ml IV BID CIRO Last Admin: 10/06/18 23:11 Dose: 10 ml Documented by: Sodium Chloride (Sodium Chloride Flush Syringe 10 Ml) 10 ml IV PRN PRN PRN Reason: LINE FLUSH Physical Examination - Physical Exam Narrative exam: Constitutional: Alert, cooperative. conversant. +incisional pain- 6/10 Head, Ears, Nose: Normocephalic, atraumatic. External ears, nose normal Eyes: Conjunctivae/corneas clear. No icterus. No ptosis. Neck: Supple, no meningeal signs Oral: dentition goo, no thrush Cardiovascular: S1, S2 normal. Respiratory: Good air entry, clear to auscultation bilaterally GI: Soft, non-tender; bowel sounds normal. No peritoneal signs Musculoskeletal: No pedal edema, no cyanosis. Skin: No rash or abscess. Hem/Lymphatic: No palpable cervical or supraclavicular nodes. No lymphangitis Psych: Mood ok. Affect normal Neurological: Awake, alert, oriented. - Constitutional Vitals: Vital Signs Temp Pulse Resp BP Pulse Ox 98.4 F 95 H 18 122/77 98 10/07/18 08:30 10/07/18 08:30 10/07/18 08:30 10/07/18 08:30 10/07/18 08:30 Temperature -Last 24 Hours Temperature 98.4 F Temperature 98.0 F Temperature 98.4 F Temperature 98.9 F Temperature 99.1 F Results - Labs CBC & Chem 7: 10/05/18 05:44 10/05/18 05:44 Assessment and Plan Imaging 10/04/18 CTAbdomen/Pelvis: Moderate inflammatory/phlegmonous change in the region of the distal appendix. The distal appendix is not clearly visualized due to the inflammatory process and lack of GI and IV contrast. This may represent changes of tip appendicitis. Cultures 10/05/2018 Blood: no growth thus far A/P: 42--year-old male with history of HIV and no other significant medical history, admitted with: 1. SIRS vs Sepsis: on admission, evidenced by leukocytois, tachycardia and temperature. Etiology acute appendicitis. CT of abdomen and pelvis showed Inflam matory inflammatory/phlegmonous change in the region of the distal appendix. S/P appendectomy by Dr. Lobo on 10/22/18. No other infectious process thus far. U/A not consistent with a UTI, blood coutures were drawn and show no growth thus far. 2. HIV: diagnosed with HIV in 2005. Currently gets ART therapy, Genvoya at [facility] in [place] with Dr. Blane Mendoza. Last CD4 count 796/VL 92 in August,. Tolerating PO, ok to resume ART therapy. 3. Tobacco Abuse: discussion about smoking cessation. 4. Substance Abuse: states that he smokes marijuana, discursion about substance abuse cessation Plan -OK to resume ART therapy, Genvoya - tolerating PO -Follow up with ID doctor in 1 week -no need for further systemic antibiotics d/w Dr. Kt Diggs, [facility] M: [phone] O:[phone]
[2018-10-07] MEDS ORDERED: NON-FORMULARY (Elviteg/Cob/Emtri/Tenof Alafen [Genvoya Tablet] 1 EACH) PO SCH ×2 (10:00)
[2018-10-07] MEDS: SODIUM CHLORIDE FLUSH SYRINGE 10 ML IV SCH (10:28)
--- NOTE | 2018-10-07 10:39 | Progress Note ---
Assessment and Plan Assessment and plan: Patient is 42 man with a history of HIV who presented to [facility] ED with abdominal pains. He was found to have the following: * CT abd/pelvis wo contrast IMPRESSION: 1. Moderate inflammatory/phlegmonous change in the region of the distal appendix. The distal appendix is not clearly visualized due to the inflammatory process and lack of GI and IV contrast. This may represent changes of tip appendicitis. If further imaging is required, CT with IV contrast and opacification of the distal small bowel and proximal colon may be helpful. 2. Moderate amount of stool throughout the colon. 3. There appears to be mild increased thickness of the urinary bladder wall. Transcribed By: ED Dictated By: THELMA FINE MD Electronically Authenticated By: THELMA FINE MD Signed Date/Time: 10/04/181913 DD/ 12 TD/TT: 10/04/181912 Acute appendicitis s/p surgery on 10/05/18 SIRS with organ dysfunction, poa: treat with empiric abx, IVFs, treat the fever with tylenol suppository HIV: consulted ID Hypotension in IMCU: treated with IV resuscitation and bp responded to IVF and transferred out to med surg History Interval history: Patient was seen and examined. Follow-up on current diagnosis Appendicitis. Imaging, nursing note, chart, labs and old chart reviewed. Discussed with patient. Hospitalist Physical - Physical exam Narrative exam: Gen: thin, ill appearing, no respiratory distress, a/o x 3 HEENT: NCAT, EOMI, PERRL, OP Clear Neck: supple, no adenopathy, no thyromegaly, no JVD CVS/Heart: tachycardia, normal S1S2, pulses present bilaterally Chest/Lungs: CTA B, Symmetrical chest expansion, good air entry bilaterally GI/Abdomen: soft, distended, right sided tenderness, +bowel sounds, +guarding, rebound /Bladder: no suprapubic tenderness, no CVA or paraspinal tenderness Extermity/Skin: no c/c/e, no obvious rash MSK: FROM x 4 Neuro: CN 2-12 grossly intact, no new focal deficits Psych: calm - Constitutional Vitals: Temp Pulse Resp BP Pulse Ox 98.4 F 95 H 18 122/77 98 10/07/18 08:30 10/07/18 08:30 10/07/18 08:30 10/07/18 08:30 10/07/18 08:30 Results - Labs CBC & Chem 7: 10/05/18 05:44 10/05/18 05:44 Labs: Laboratory Last Values WBC 18.1 K/mm3 (4.5-11.0) H 10/05/18 05:44 RBC 3.92 M/mm3 (3.65-5.03) 10/05/18 05:44 Hgb 12.8 gm/dl (11.8-15.2) 10/05/18 05:44 Hct 38.0 % (35.5-45.6) 10/05/18 05:44 MCV 97 fl (84-94) H 10/05/18 05:44 MCH 33 pg (28-32) H 10/05/18 05:44 MCHC 34 % (32-34) 10/05/18 05:44 RDW 15.8 % (13.2-15.2) H 10/05/18 05:44 Plt Count 255 K/mm3 (140-440) 10/05/18 05:44 Lymph % (Auto) 18.4 % (13.4-35.0) 10/04/18 17:02 [place] % (Auto) 11.3 % (0.0-7.3) H 10/04/18 17:02 Eos % (Auto) 1.1 % (0.0-4.3) 10/04/18 17:02 Baso % (Auto) 0.5 % (0.0-1.8) 10/04/18 17:02 Lymph # 3.2 K/mm3 (1.2-5.4) 10/04/18 17:02 [place] # 2.0 K/mm3 (0.0-0.8) H 10/04/18 17:02 Eos # 0.2 K/mm3 (0.0-0.4) 10/04/18 17:02 Baso # 0.1 K/mm3 (0.0-0.1) 10/04/18 17:02 Add Manual Diff Complete 10/05/18 05:44 Total Counted 100 10/05/18 05:44 Seg Neutrophils % 68.7 % (40.0-70.0) 10/04/18 17:02 Seg Neuts % (Manual) 71.0 % (40.0-70.0) H 10/05/18 05:44 Band Neutrophils % 0 % 10/05/18 05:44 Lymphocytes % (Manual) 20.0 % (13.4-35.0) 10/05/18 05:44 Reactive Lymphs % (Man) 0 % 10/05/18 05:44 Monocytes % (Manual) 8.0 % (0.0-7.3) H 10/05/18 05:44 Eosinophils % (Manual) 0 % (0.0-4.3) 10/05/18 05:44 Basophils % (Manual) 1.0 % (0.0-1.8) 10/05/18 05:44 Metamyelocytes % 0 % 10/05/18 05:44 Myelocytes % 0 % 10/05/18 05:44 Promyelocytes % 0 % 10/05/18 05:44 Blast Cells % 0 % 10/05/18 05:44 Nucleated RBC % Not Reportable 10/05/18 05:44 Seg Neutrophils # 12.1 K/mm3 (1.8-7.7) H 10/04/18 17:02 Seg Neutrophils # Man 12.9 K/mm3 (1.8-7.7) H 10/05/18 05:44 Band Neutrophils # 0.0 K/mm3 10/05/18 05:44 Lymphocytes # (Manual) 3.6 K/mm3 (1.2-5.4) 10/05/18 05:44 Abs React Lymphs (Man) 0.0 K/mm3 10/05/18 05:44 Monocytes # (Manual) 1.4 K/mm3 (0.0-0.8) H 10/05/18 05:44 Eosinophils # (Manual) 0.0 K/mm3 (0.0-0.4) 10/05/18 05:44 Basophils # (Manual) 0.2 K/mm3 (0.0-0.1) H 10/05/18 05:44 Metamyelocytes # 0.0 K/mm3 10/05/18 05:44 Myelocytes # 0.0 K/mm3 10/05/18 05:44 Promyelocytes # 0.0 K/mm3 10/05/18 05:44 Blast Cells # 0.0 K/mm3 10/05/18 05:44 WBC Morphology Not Reportable 10/05/18 05:44 Hypersegmented Neuts Not Reportable 10/05/18 05:44 Hyposegmented Neuts Not Reportable 10/05/18 05:44 Hypogranular Neuts Not Reportable 10/05/18 05:44 Smudge Cells Not Reportable 10/05/18 05:44 Toxic Granulation Not Reportable 10/05/18 05:44 Toxic Vacuolation Not Reportable 10/05/18 05:44 Dohle Bodies Not Reportable 10/05/18 05:44 Pelger-Huet Anomaly Not Reportable 10/05/18 05:44 Melchor Rods Not Reportable 10/05/18 05:44 Platelet Estimate Consistent w auto 10/05/18 05:44 Clumped Platelets Not Reportable 10/05/18 05:44 Plt Clumps, EDTA Not Reportable 10/05/18 05:44 Large Platelets Not Reportable 10/05/18 05:44 Giant Platelets Not Reportable 10/05/18 05:44 Platelet Satelliting Not Reportable 10/05/18 05:44 Plt Morphology Comment Not Reportable 10/05/18 05:44 RBC Morphology Not Reportable 10/05/18 05:44 Dimorphic RBCs Not Reportable 10/05/18 05:44 Polychromasia Not Reportable 10/05/18 05:44 Hypochromasia Not Reportable 10/05/18 05:44 Poikilocytosis 1+ 10/05/18 05:44 Anisocytosis 1+ 10/05/18 05:44 Microcytosis Not Reportable 10/05/18 05:44 Macrocytosis Not Reportable 10/05/18 05:44 Spherocytes Not Reportable 10/05/18 05:44 Pappenheimer Bodies Not Reportable 10/05/18 05:44 Sickle Cells Not Reportable 10/05/18 05:44 Target Cells Not Reportable 10/05/18 05:44 Tear Drop Cells Not Reportable 10/05/18 05:44 Ovalocytes Rare 10/05/18 05:44 Helmet Cells Not Reportable 10/05/18 05:44 [place] Bodies Not Reportable 10/05/18 05:44 [place] Rings Not Reportable 10/05/18 05:44 Louann Cells Not Reportable 10/05/18 05:44 Bite Cells Not Reportable 10/05/18 05:44 Crenated Cell Not Reportable 10/05/18 05:44 Elliptocytes Not Reportable 10/05/18 05:44 Acanthocytes (Spur) Not Reportable 10/05/18 05:44 Rouleaux Not Reportable 10/05/18 05:44 Hemoglobin C Crystals Not Reportable 10/05/18 05:44 Schistocytes Not Reportable 10/05/18 05:44 Malaria parasites Not Reportable 10/05/18 05:44 Gustavo Bodies Not Reportable 10/05/18 05:44 Hem Pathologist Commnt No 10/05/18 05:44 Sodium 131 mmol/L (137-145) L 10/05/18 05:44 Potassium 3.9 mmol/L (3.6-5.0) 10/05/18 05:44 Chloride 96.6 mmol/L (98-107) L 10/05/18 05:44 Carbon Dioxide 22 mmol/L (22-30) 10/05/18 05:44 Anion Gap 16 mmol/L 10/05/18 05:44 BUN 13 mg/dL (9-20) 10/05/18 05:44 Creatinine 1.2 mg/dL (0.8-1.5) 10/05/18 05:44 Estimated GFR > 60 ml/min 10/05/18 05:44 BUN/Creatinine Ratio 11 % 10/05/18 05:44 Glucose 108 mg/dL (75-100) H 10/05/18 05:44 Calcium 9.1 mg/dL (8.4-10.2) 10/05/18 05:44 Total Bilirubin 0.50 mg/dL (0.1-1.2) 10/04/18 17:02 AST 39 units/L (5-40) 10/04/18 17:02 ALT 52 units/L (7-56) 10/04/18 17:02 Alkaline Phosphatase 94 units/L (35-129) 10/04/18 17:02 Total Protein 9.8 g/dL (6.3-8.2) H 10/04/18 17:02 Albumin 3.7 g/dL (3.9-5) L 10/04/18 17:02 Albumin/Globulin Ratio 0.6 % 10/04/18 17:02 Urine Color Yellow (Yellow) 10/04/18 18:04 Urine Turbidity Clear (Clear) 10/04/18 18:04 Urine pH 5.0 (5.0-7.0) 10/04/18 18:04 Ur Specific [place] 1.018 (1.003-1.030) 10/04/18 18:04 Urine Protein <15 mg/dl mg/dL (Negative) 10/04/18 18:04 Urine Glucose (UA) Neg mg/dL (Negative) 10/04/18 18:04 Urine Ketones Neg mg/dL (Negative) 10/04/18 18:04 Urine Blood Lg (Negative) 10/04/18 18:04 Urine Nitrite Neg (Negative) 10/04/18 18:04 Urine Bilirubin Neg (Negative) 10/04/18 18:04 Urine Urobilinogen < 2.0 mg/dL (<2.0) 10/04/18 18:04 Ur Leukocyte Esterase Neg (Negative) 10/04/18 18:04 Urine WBC (Auto) 5.0 /HPF (0.0-6.0) 10/04/18 18:04 Urine RBC (Auto) 127.0 /HPF (0.0-6.0) 10/04/18 18:04 U Epithel Cells (Auto) < 1.0 /HPF (0-13.0) 10/04/18 18:04 Urine Mucus Few /HPF 10/04/18 18:04
--- NOTE | 2018-10-07 12:33 | Discharge Summary ---
Providers - Providers Date of Admission: 10/04/18 21:28 Date of discharge: 10/07/18 Attending physician: RAFFI JOINER 10/04/18 21:54 Consult to Physician [CONS] Routine Comment: Consulting Provider: WAYNE CRUZ Physician Instructions: Reason For Exam: appenicitis 10/05/18 15:39 Consult to Physician [CONS] Routine Comment: Consulting Provider: COLLIN MONTE Physician Instructions: I notified Reason For Exam: HIV, s/p appendectomy, evaluate for sepsis Hospitalization Condition: Stable Hospital course: Patient is 42 man with a history of HIV who presented to [facility] ED with abdominal pains. He was found to have the following: * CT abd/pelvis wo contrast IMPRESSION: 1. Moderate inflammatory/phlegmonous change in the region of the distal appendix. The distal appendix is not clearly visualized due to the inflammatory process and lack of GI and IV contrast. This may represent changes of tip appendicitis. If further imaging is required, CT with IV contrast and opacification of the distal small bowel and proximal colon may be helpful. 2. Moderate amount of stool throughout the colon. 3. There appears to be mild increased thickness of the urinary bladder wall. Transcribed By: ED Dictated By: THELMA FINE MD Electronically Authenticated By: THELMA FINE MD Signed Date/Time: 10/04/181913 DD/ 12 TD/TT: 10/04/181912 Acute appendicitis s/p surgery on 10/05/18 SIRS with organ dysfunction, poa: treat with empiric abx, IVFs, treat the fever with tylenol suppository prn HIV: consulted ID==>no need for abx, restart [place] Hypotension in IMCU: treated with IV resuscitation and bp responded to IVF and transferred out to med surg, now stable Disposition: DC-01 TO HOME OR SELFCARE Time spent for discharge: 35 minutes Core Measure Documentation - Palliative Care Palliative Care/ Comfort Measures: Not Applicable - Core Measures Any of the following diagnoses?: none - VTE Discharge Requirements Deep Vein Thrombosis/Pulmonary Embolism Present on Admission: No Has pt received <5 days of overlap therapy or INR<2.0: No Anticoagulant overlap therapy prescribed at discharge: No Contraindication No Overlap Therapy order at DC: Not Indicated Exam - Physical Exam Narrative exam: Gen: thin, ill appearing, no respiratory distress, a/o x 3 HEENT: NCAT, EOMI, PERRL, OP Clear Neck: supple, no adenopathy, no thyromegaly, no JVD CVS/Heart: tachycardia, normal S1S2, pulses present bilaterally Chest/Lungs: CTA B, Symmetrical chest expansion, good air entry bilaterally GI/Abdomen: soft, distended, right sided tenderness, +bowel sounds, +guarding, rebound /Bladder: no suprapubic tenderness, no CVA or paraspinal tenderness Extermity/Skin: no c/c/e, no obvious rash MSK: FROM x 4 Neuro: CN 2-12 grossly intact, no new focal deficits Psych: calm - Constitutional Vitals: Temp Pulse Resp BP Pulse Ox 98.4 F 95 H 18 122/77 98 10/07/18 08:30 10/07/18 08:30 10/07/18 08:30 10/07/18 08:30 10/07/18 08:30 Plan Activity: other (no strenous activity until cleared by Surgeon) Diet: advance as tolerated (soft diet and advance as tolerated) Follow up with: KATEY POE [Other] - 3-5 Days COLLIN MONTE MD [Staff Physician] - 7 Days LYNSEY PIERRE DO [Staff Physician] - 3 Days Prescriptions: Bisacodyl [Dulcolax suppos] 10 mg ME QDAY PRN #4 supp.rect PRN Reason: Constipation HYDROcodone/APAP 5-325 [Gamaliel 5-325 mg TAB] 1 each PO Q6H PRN #20 tablet PRN Reason: Pain , Severe (7-10)
--- NOTE | 2018-10-07 14:42 | Progress Note ---
Assessment and Plan 42 yo M s/p laparoscopic appendectomy, POD 2 1. soft diet 2. c/w IVF 3. OOB/ambulate 4. IS/pulm toilet 5. ice to incision, prn PO pain control 6. no need for further antibiotics from surgery standpoint Pt is stable for dc from surgery standpoint. I explained to him that he may notice his stomach is bloated for a few days but this will get better with time. He is to continue on a soft diet for several days. He will follow up in surgery clinic in [address] Friend. Printed dc instruction left on chart, pt to call to make an appointment. D/W Dr. Cantu Thank you, please call with questions. Subjective Date of service: 10/07/18 Narrative: Pt seen and examined. c/o some abdominal discomfort. He is tolerating reg diet. No n/v, f/c. He is passing flatus but no BM yet. He has been OOB. Objective Vital Signs - 12hr 10/07/18 10/07/18 03:25 08:30 Temperature 98.0 F 98.4 F Pulse Rate 76 95 H Respiratory 17 18 Rate Blood Pressure 126/84 Blood Pressure 122/77 [Left] O2 Sat by Pulse 99 98 Oximetry - General physical appearance Narrative Exam: Gen: AAOx3. NAD CV: s1, S2+ resp: even and unlabored Abd: soft, mildly distended, mild TTP near incisions. no r/r/g. incisions c/d/i Ext: no c/c/e - Labs 10/05/18 05:44 10/05/18 05:44
[2018-10-07 18:28] VITALS: BP 118/81
== END 2018-10-07 17:35 | disposition home or self-care (01) | DRG 341 ==
LOC: ED 16:46 → 3B-SURG 21:28 → IMCU 10-05 14:57 → 3B-SURG 10-06 15:39
PROVIDERS: ADMIT Internal Medicine; ATTEND Internal Medicine
PROC: 0DTJ4ZZ Resection of Appendix, Percutaneous Endoscopic Approach (ICD-10-PCS; principal; 2018-10-05)
DX: K35.30 Acute appendicitis with localized peritonitis, without perforation or gangrene (principal); R65.11 Systemic inflammatory response syndrome (SIRS) of non-infectious origin with acute organ dysfunction; B20 Human immunodeficiency virus [HIV] disease; I95.9 Hypotension, unspecified; F17.200 Nicotine dependence, unspecified, uncomplicated; F19.10 Other psychoactive substance abuse, uncomplicated; F12.10 Cannabis abuse, uncomplicated; Z91.013 Allergy to seafood; Z82.49 Family history of ischemic heart disease and other diseases of the circulatory system; Z91.041 Radiographic dye allergy status; Z79.899 Other long term (current) drug therapy
CPT/HCPCS: 36415; 74176; 80048; 80053; 81001; 85007; 85025; 87040; 87116; 88304; G0378; A4217; J0330; J1170; J1885; J2250; J2270; J2370; J2405; J2543; J2704; J2710; J3246; J7030